=== PATIENT | male | born 1985 | race Caucasian/White ===

== ENCOUNTER 2021-03-06 16:51 | Emergency (ER) | payer SELFPAY ==
--- NOTE | ~2021-03-06 | US_ITS ---
EXAMINATION: US ABDOMEN LIMITED CLINICAL INFORMATION: Mild right upper quadrant pain, leukocytosis. COMPARISON: None TECHNIQUE: Real-time imaging of the right upper quadrant abdominal viscera. FINDINGS: Suboptimal assessment due to bowel gas and patient cooperativity. PANCREAS: The visualized proximal portion of the pancreas is unremarkable. The distal portion is obscured secondary to overlying bowel gas. LIVER: The liver is normal in size. The liver contour is normal. Parenchymal echogenicity is normal. No focal hepatic lesion. There is no intrahepatic biliary duct dilatation seen. GALLBLADDER: The gallbladder is physiologically distended without evidence of stones, sludge, polyps, wall thickening or pericholecystic fluid. Sonographic Easley sign is reportedly negative. COMMON BILE DUCT: Normal in caliber measuring 0.4 cm in diameter. RIGHT KIDNEY: Limited views. No hydronephrosis. No renal calculi or focal parenchymal lesions identified. The kidney measures 11.7 cm in maximum dimension. FREE FLUID: None. US/US abdomen limited IMPRESSION: No acute findings identified.
--- NOTE | ~2021-03-06 | XR_ITS ---
EXAMINATION: XR ANKLE, RIGHT CLINICAL INFORMATION: Possible fracture COMPARISON: None TECHNIQUE: AP, lateral, and mortise views of the right ankle. FINDINGS: Soft tissue swelling is seen about the ankle. Ankle mortise appears to be intact. Well-corticated ossifications inferior to the medial malleolus possibly representing old healed injury or accessory ossicles. I do not appreciate any acute fracture or dislocation. No periosteal reaction. XR/XR ankle RT 2V IMPRESSION: Soft tissue swelling about the ankle. No acute fracture or dislocation.
--- NOTE | ~2021-03-06 | XR_ITS ---
EXAMINATION: XR CHEST CLINICAL INFORMATION: Leukocytosis, chills COMPARISON: None TECHNIQUE: Frontal view of the chest was obtained. FINDINGS: Lung volumes are symmetric. No focal consolidation is seen. No evidence of pneumothorax, pleural effusion, or pulmonary edema. The cardiomediastinal contour is unremarkable. No acute osseous findings are seen. XR/XR chest 1V IMPRESSION: No acute cardiopulmonary findings.
[2021-03-06 17:04] VITALS: BP 173/102; PULSE 130; RESP 18; TEMP 37.1; O2SAT 98; BMI 23.7
--- NOTE | 2021-03-06 17:07 | ECG_ITS ---
Test Reason : GENERAL MEDICAL Blood Pressure : / mmHG Vent. Rate : 118 BPM Atrial Rate : 118 BPM P-R Int : 152 ms QRS Dur : 094 ms QT Int : 284 ms P-R-T Axes : 000 055 046 degrees QTc Int : 398 ms Sinus tachycardia Otherwise normal ECG No previous ECGs available Referred By: Karla Colunga Electronically Signed By:MOOKIE ELIZABETH MD
--- NOTE | 2021-03-06 17:08 | ED_ITS ---
HPI - Overdose General Chief Complaint: Medical Clearance Time Seen by Provider: 03/06/21 17:07 Source: EMS Mode of arrival: EMS Limitations: no limitations History of Present Illness HPI Narrative: Patient is brought to the emergency room by EMS. Patient was found outside of Police Department, patient states that he relapsed on heroin yesterday and alcohol today. Patient denies SI or HI. Patient denies SI or HI Related Data Allergies Allergy/AdvReac Type Severity Reaction Status Date / Time No Known Allergies Allergy Verified 03/06/21 17:07 Review of Systems Review of Systems: Constitutional : No Weight loss, No Fever, No Chills, No Night Sweats, No Fatigue, No Malaise ENT/Mouth : No Hearing loss, No Ear Pain, No Nasal Congestion, No Sinus Pain, No Hoarseness, No sore throat, No Rhinorrhea, No Swallowing Difficulty Eyes: No Eye Pain, No Swelling, No Redness, No Foreign Body, No Discharge, No Vision Changes Cardiovascular : No Chest Pain, No SOB, No Dyspnea on Exertion, No Orthopnea, No Edema, No Palpitations Respiratory : No Cough, No Sputum, No Wheezing, No Smoke Exposure, No Dyspnea Gastrointestinal : No Nausea, No Vomiting, No Diarrhea, No Constipation, No abdominal Pain, No Hematochezia, No Melena Genitourinary : no irregular bleeding, No Dysuria, No Urinary Frequency, No Hematuria, No Urinary Incontinence, No Urgency, No Flank Pain, No Urinary Flow Changes, No Hesitancy Musculoskeletal : Complaining of right ankle pain No Myalgias, No Joint Swelling Skin : No Skin Lesions, No rash, complaining of blisters on his feet Neuro : No Weakness, No Numbness, No Paresthesias, No Loss of Consciousness, No Dizziness, No Headache Psych : No Anxiety/Panic, No Depression, No SI/HI/AH/VH, No Social Issues, Heme/Lymph: No Bruising, No Bleeding,No Lymphadenopathy Endocrine : No Polyuria, No Polydipsia, No Temperature Intolerance PMF Past Medical History Medical History Alcohol abuse Opiate addiction Social History Social History Alcohol intake: current Alcohol intake frequency: 3 or more drinks per day Alcohol type: hard liquor Patient Tobacco Use Status: Current someday Tobacco user Smoked in Last 30 Days: Yes Use of substances other than those prescribed or required for medical reasons: Yes Substance Use Type: Crack/Cocaine and Heroin Substance Use Frequency: Daily Advance Directives: No Advance Directives Information Provided: No Physical Exam Vital Signs: Vital Signs: Last Vital Signs Temp 98.6 F 03/07/21 00:32 Pulse 96 03/07/21 00:32 Resp 18 03/07/21 00:32 BP 128/72 03/07/21 00:32 Pulse Ox 97 03/07/21 00:32 Body Mass Index 23.7 Appearance: Alert. Oriented X3. Very anxious, angry Eyes: Pupils equal, round and reactive to light. ENT: Pharynx normal. Neck: Normal inspection. Neck supple. No lymph nodes noted. No crepitus CVS: Normal heart rate and rhythm. Pulses normal. Normal S1 and S2 Respiratory: No respiratory distress. Breath sounds normal. No Wheezing. No rales Abdomen: Soft and nontender. No rigidity. No distention. good BS x4 Skin: Skin warm and dry. Sunburn/erythematous in face and upper back, mild blisters and feet bilaterally, large ecchymosis in the right angle extending towards the toes medial aspect Extremities: No lower extremity edema. No lower extremity edema. No Laceratio ns. No Rash Neuro: Oriented X 3. No motor deficit. No sensory deficit. Moving all extermities. No slurred speech. Course Course Course Narrative: The job coach/job developer spoke to the patient, patient declined any help. Patient's LFTs are elevated, it is likely secondary from alcohol consumption. Within have any labs to compare to. Patient states that he does have mild abdominal discomfort. Abdominal ultrasound pending. Physician observation was started. Patient vitals are stable. Patient is d iaphoretic, at this time opiate withdrawal is suspected. More labs were obtained including lactic acid. We do not have any previous labs to compare our current labs. At this time 00:40 sepsis is not suspected. Patient declined rectal temperature However x-ray breed to wean production technician came to the ER patient's room, patient declined the x- ray. Patient also declined the ultrasound. Patient stated that he will be checking for mild, but fell immediately back asleep. MDM - Overdose Lab Data Result diagrams: 03/06/21 19:38 03/06/21 19:38 Labs: Lab Results 06/09/21 06/09/21 06/09/21 Range/Units 19:38 19:38 19:38 WBC 15.8 H (4.8-10.8) X10*3/uL RBC 5.29 (4.60-5.80) X10*6/uL Hgb 16.1 (14.0-18.0) g/dl Hct 47.7 (42-52) % MCV 90.2 (80-98) fL MCH 30.4 (27.0-33.0) pg MCHC 33.8 (31.0-36.0) g/dl RDW 13.3 (11.0-16.0) % Plt Count 220 (160-400) X10*3/uL MPV 9.6 (9.4-12.4) fL Immature Gran % (Auto) 0.8 H (0.0-0.4) % Neut % (Auto) 79.6 H (45-73) % Lymph % (Auto) 8.6 L (20-40) % [place] % (Auto) 10.4 (2-11) % Eos % (Auto) 0.3 (0-4) % Baso % (Auto) 0.3 (0-2) % Lymph # (Auto) 1.4 (1.2-4.9) X10*3/uL [place] # (Auto) 1.7 H (0.1-1.2) X10*3/uL Eos # (Auto) 0.0 (0.0-0.4) X10*3/uL Baso # (Auto) 0.0 (0.0-0.2) X10*3/uL Abs Immat Gran (auto) 0.13 H (0.00-0.03) X10*3/uL Absolute Neuts (auto) 12.6 H (2.0-8.3) X10*3/uL Absolute Nucleated RBC 0.000 (0.0-0.012) X10*3/uL Nucleated RBC % (auto) 0.0 (0.0-0.2) /100WBC Smear Tech's Comments VERIFIED Sodium 133 L (135-145) mmol/L Potassium 4.1 (3.3-5.1) mmol/L Chloride 100 (96-108) mmol/L Carbon Dioxide 23 (22-29) mmol/L Anion Gap 14 (12-20) BUN 10 (9-16) mg/dL Creatinine 1.12 (0.5-1.4) mg/dL Estim Creat Clear Calc 101.0 Estimated GFR > 60 Random Glucose 117 H (60-115) mg/dL Calcium 9.0 (8.4-10.2) mg/dL Total Bilirubin 1.5 H (0.0-1.0) mg/dL Direct Bilirubin 0.6 H (0.0-0.5) mg/dL AST 52 H (5-37) U/L ALT 37 (0-40) U/L Alkaline Phosphatase 65 (39-117) U/L Ammonia (13-55) umol/L Total Protein 7.0 (6.5-8.0) g/dL Albumin 4.4 (3.5-5.0) g/dL Urine Color YELLOW Urine Appearance CLEAR Urine pH 6.0 (5.0-8.0) Ur Specific [place] <= 1.005 (1.005-1.025) Urine Protein NEG (NEG-TRACE) MG/DL Urine Glucose (UA) NEG (NEG) MG/DL Urine Ketones NEG (NEG) MG/DL Urine Blood NEG (NEG) Urine Nitrite NEG (NEG) Ur Leukocyte Esterase NEG (NEG) Urine Opiates Screen (Not Detect) Ur Barbiturates Screen (Not Detect) Ur Phencyclidine Scrn (Not Detect) Ur Amphetamines Screen (Not Detect) U Benzodiazepines Scrn (Not Detect) Urine Cocaine Screen (Not Detect) U Marijuana (THC) Screen (Not Detect) COVID-19 (RAISA) (Negative) COVID-19 Clin Com 03/06/21 03/06/21 03/07/21 Range/Units 19:38 23:19 01:03 WBC (4.8-10.8) X10*3/uL RBC (4.60-5.80) X10*6/uL Hgb (14.0-18.0) g/dl Hct (42-52) % MCV (80-98) fL MCH (27.0-33.0) pg MCHC (31.0-36.0) g/dl RDW (11.0-16.0) % Plt Count (160-400) X10*3/uL MPV (9.4-12.4) fL Immature Gran % (Auto) (0.0-0.4) % Neut % (Auto) (45-73) % Lymph % (Auto) (20-40) % [place] % (Auto) (2-11) % Eos % (Auto) (0-4) % Baso % (Auto) (0-2) % Lymph # (Auto) (1.2-4.9) X10*3/uL [place] # (Auto) (0.1-1.2) X10*3/uL Eos # (Auto) (0.0-0.4) X10*3/uL Baso # (Auto) (0.0-0.2) X10*3/uL Abs Immat Gran (auto) (0.00-0.03) X10*3/uL Absolute Neuts (auto) (2.0-8.3) X10*3/uL Absolute Nucleated RBC (0.0-0.012) X10*3/uL Nucleated RBC % (auto) (0.0-0.2) /100WBC Smear Tech's Comments Sodium (135-145) mmol/L Potassium (3.3-5.1) mmol/L Chloride (96-108) mmol/L Carbon Dioxide (22-29) mmol/L Anion Gap (12-20) BUN (9-16) mg/dL Creatinine (0.5-1.4) mg/dL Estim Creat Clear Calc Estimated GFR Random Glucose (60-115) mg/dL Calcium (8.4-10.2) mg/dL Total Bilirubin (0.0-1.0) mg/dL Direct Bilirubin (0.0-0.5) mg/dL AST (5-37) U/L ALT (0-40) U/L Alkaline Phosphatase (39-117) U/L Ammonia 45 (13-55) umol/L Total Protein (6.5-8.0) g/dL Albumin (3.5-5.0) g/dL Urine Color Urine Appearance Urine pH (5.0-8.0) Ur Specific [place] (1.005-1.025) Urine Protein (NEG-TRACE) MG/DL Urine Glucose (UA) (NEG) MG/DL Urine Ketones (NEG) MG/DL Urine Blood (NEG) Urine Nitrite (NEG) Ur Leukocyte Esterase (NEG) Urine Opiates Screen POSITIVE H (Not Detect) Ur Barbiturates Screen Not Detected (Not Detect) Ur Phencyclidine Scrn Not Detected (Not Detect) Ur Amphetamines Screen Not Detected (Not Detect) U Benzodiazepines Scrn Not Detected (Not Detect) Urine Cocaine Screen POSITIVE H (Not Detect) U Marijuana (THC) Screen Not Detected (Not Detect) COVID-19 (RAISA) Negative (Negative) COVID-19 Clin Com See Note ECG Data Attestation: I personally reviewed and interpreted this ECG as follows: (Sinus tachycardia, heart rate 118, to inversions in AVF, nonspecific T-wave changes in 2 3 and AVF)
--- NOTE | 2021-03-06 17:29 | PC.NURSE ---
client changed over to [facility] attire with security present. client thrashing in bed, not being cooperative, wanting to leave. Client hr elevated. attempted to get ekg. client has right foot bruising with boot from previous injury. Client is alert and oriented but under the influence of what seems to be cocaine.
[2021-03-06] MEDS: LORazepam 1 MG TABLET 2 MG PO (17:46)
[2021-03-06 17:55] VITALS: BP 135/95; PULSE 121
--- NOTE | 2021-03-06 18:06 | MHC.RECOVSUP ---
? Reason for consult recovery support o Current location: ED6 o Identified substance use concern: Heroin - Overdose - Support ? Intervention: <del>o</del> <del>ATS</del> <del>bed</del> <del>search</del> <del>started/completed/in</del> <del>process</del> <del>o</del> <del>MAT</del> <del>started</del> <del>or</del> <del>to</del> <del>be</del> <del>started</del> <del>o</del> <del>Community</del> <del>resources</del> <del>provided</del> <del>o</del> <del>Harm</del> <del>reduction</del> <del>discussion</del> ? Plan: o <del>Referral</del> <del>to</del> <del>[facility]</del> <del>o</del> <del>Bed</del> <del>search</del> <del>in</del> <del>progress</del> <del>to</del> <del>o</del> <del>Follow</del> <del>up</del> <del>tomorrow</del> <del>o</del> <del>Patient</del> <del>awaiting</del> <del>crisis</del> <del>evaluation</del> <del>o</del> <del>Patient</del> <del>to</del> <del>follow</del> <del>up</del> <del>with</del> <del>[facility]</del> <del>after</del> <del>discharge</del> ? Additional information: Patient refuse any services
--- NOTE | 2021-03-06 18:48 | PC.NURSE ---
CLIENT REFUSES TO GET HIS LABS DONE, REFUSES TO KEEP MONITORS ON. GIVEN MULTIPLE DIRECTIVES. AMBULATING TO AND FROM BATHROOM HALF NAKED.
--- NOTE | 2021-03-06 18:58 | PC.NURSE ---
CLIENT STATES HE WANTS TO LEAVE, REFUSING ALL INTERVENTIONS. DR JEFF CUELLAR.
[2021-03-06 19:49] LABS: Glucose Urine UA NEG (NEG); Leukocyte Esterase Urine NEG (NEG); Nitrite Urine NEG (NEG); Specific Gravity - Urine <= 1.005 (1.005-1.025); Urine Blood NEG (NEG); Urine Ketones NEG (NEG); Urine Protein NEG (NEG-TRACE)
--- NOTE | 2021-03-06 19:49 | PC.NURSE ---
ATTEMPTED TO GET BLOODS, CLIENT VERY AGITATED. SMALL AMOUNT OF BLOOD RECIEVED.
[2021-03-06 19:50] LABS: Appearance Urine CLEAR; Color Urine YELLOW
[2021-03-06 19:53] LABS: Basophils Percent Auto 0.3 % (0-2); Eosinophils Percent Auto 0.3 % (0-4); Hematocrit 47.7 % (42-52); Hemoglobin 16.1 g/dl (14.0-18.0); Imm Gran Abs Auto 0.13 X10*3/uL (0.00-0.03); Imm Gran Pct Auto 0.8 % (0.0-0.4); Lymphocytes Absolute Auto 1.4 X10*3/uL (1.2-4.9); Lymphocytes Percent Auto 8.6 % (20-40); MANUAL DIFF FLAG SCAN; Mean Corpuscular HGB Conc 33.8 g/dl (31.0-36.0); Mean Corpuscular Hemoglobin 30.4 pg (27.0-33.0); Mean Corpuscular Volume 90.2 fL (80-98); Mean Platelet Volume 9.6 fL (9.4-12.4); Monocytes Absolute Auto 1.7 X10*3/uL (0.1-1.2); Monocytes Percent Auto 10.4 % (2-11); Neutrophils Absolute Auto 12.6 X10*3/uL (2.0-8.3); Neutrophils Percent Auto 79.6 % (45-73); Platelet Count 220 X10*3/uL (160-400); Red Blood Count 5.29 X10*6/uL (4.60-5.80); Red Cell Distribution Width 13.3 % (11.0-16.0); SCAN SMEAR FLAG 1; White Blood Count 15.8 X10*3/uL (4.8-10.8)
[2021-03-06 20:17] LABS: Amphetamine Screen Urine Not Detected (Not Detect); Barbiturates, Urine Not Detected (Not Detect); Benzodiazepines Screen Urine Not Detected (Not Detect); Cannabinoid Screen Urine Not Detected (Not Detect); Cocaine Screen Urine POSITIVE (Not Detect); Opiate Screen Urine POSITIVE (Not Detect); Phencyclidine Screen Urine Not Detected (Not Detect)
[2021-03-06 20:19] LABS: Alanine Aminotransferase 37 U/L (0-40); Albumin Level 4.4 g/dL (3.5-5.0); Alkaline Phosphatase 65 U/L (39-117); Anion Gap 14 (12-20); Aspartate Amino Transferase 52 U/L (5-37); Bilirubin Direct 0.6 mg/dL (0.0-0.5); Bilirubin Total 1.5 mg/dL (0.0-1.0); Blood Urea Nitrogen 10 mg/dL (9-16); Carbon Dioxide 23 mmol/L (22-29); Chloride 100 mmol/L (96-108); Estimated Glomerular Filt Rate > 60; Glucose Random 117 mg/dL (60-115); Potassium 4.1 mmol/L (3.3-5.1); Sodium 133 mmol/L (135-145)
[2021-03-06 20:25] VITALS: BP 120/60; PULSE 123; RESP 18; O2SAT 95
[2021-03-06 20:45] LABS: SLIDE REVIEW VERIFIED
--- NOTE | 2021-03-06 20:45 | PC.NURSE ---
pt ambulatory, steady on feet. standing to use urinal at bedside. pt requested and was given 2 sandwiches and 3 containers of juice.
--- NOTE | 2021-03-06 20:54 | PC.NURSE ---
patient continues to get out of bed and refuse following directives for his safety.
[2021-03-06 22:22] VITALS: BP 120/60; PULSE 100; RESP 18; O2SAT 99
[2021-03-06 22:44] VITALS: TEMP 37.6
[2021-03-06 23:48] LABS: COVID-19 Test Negative (Negative); IDNOW Serial# 9DD0AD1C
[2021-03-07 00:32] VITALS: BP 128/72; PULSE 96; RESP 18; TEMP 37; O2SAT 97
--- NOTE | 2021-03-07 00:37 | PC.NURSE ---
PT REFUSED RECTAL TEMPERATURE, MD REQUESTED RETAL TEMP. PT WARM TO TOUCH AND SWEATING. ASKED PT IF HE WAS WITHDRAWING FROM OPIATES, HE SAID HE DOESN'T USE REGULARLY. PT REPORTS THAT HE DRINKS A HALF GALLON OF ALCOHOL DAILY.
[2021-03-07] MEDS: 0.9 % Sodium Chloride 1,000 ML 999 ML IVCONT (01:10)
--- NOTE | 2021-03-07 01:11 | PC.NURSE ---
ASKED PT ABOUT FEVER, HE REPORTS THAT HE HAS BEEN GETTING FEVERS AT NIGHT FOR THE PAST 8-10 DAYS. PT NOW ADMITS HE HAS USED NEEDLES.
[2021-03-07 01:22] LABS: Ammonia 45 umol/L (13-55)
[2021-03-07 01:26] LABS: Lactic Acid 0.7 mmol/L (0.5-2.0)
[2021-03-07 01:27] LABS: Ethanol < 10 mg/dL
[2021-03-07 04:51] VITALS: BP 116/74; PULSE 76; RESP 16; O2SAT 95
--- NOTE | 2021-03-07 06:42 | PC.NURSE ---
PT GIVEN 2 CUPS OF JUICE. PT AMBULATORY TO BATHROOM WITH STEADY GAIT. PT AMBULATORY WITH SECURITY TO DECON ROOM FOR HIS BELONGINGS. PT HAS HIS CELL PHONE IN HIS HAND.
== END 2021-03-07 06:44 | disposition home or self-care (01) ==
PROVIDERS: Emergency Provider Emergency Medicine
DX: F19.20 Other psychoactive substance dependence, uncomplicated (principal); F10.10 Alcohol abuse, uncomplicated; F11.20 Opioid dependence, uncomplicated; R10.11 Right upper quadrant pain; R79.89 Other specified abnormal findings of blood chemistry; D72.829 Elevated white blood cell count, unspecified; M25.571 Pain in right ankle and joints of right foot; Z20.822 Contact with and (suspected) exposure to COVID-19
CPT/HCPCS: 36415; 71045; 73600; 76705; 80048; 80076; 80307; 81003; 82077; 82140; 83605; 85025; 87040; 87635; 93005; 96360; 99285